=== PATIENT | female | born 1955 | race Caucasian/White ===

== ENCOUNTER 2017-05-23 07:59 | Inpatient (IN) | payer BC ==
[2017-05-16 11:04] LABS: BASOPHILS # (AUTO) 0.1 (0.0-0.1); BASOPHILS % 0.6 % (0.0-1.0); EOSINOPHILS # (AUTO) 0.1 (0.0-0.4); EOSINOPHILS % 1.4 % (0.0-6.0); HEMATOCRIT 42.7 % (34.2-44.1); LYMPHOCYTES # (AUTO) 2.9 (1.0-3.2); MEAN CORPUSCULAR HEMOGLOBIN 28.9 pg (28-32); MEAN CORPUSCULAR HGB CONC 32.8 g/dL (31-35); MONOCYTES # (AUTO) 0.4 (0.2-0.8); MONOCYTES % 5.6 % (4.4-11.3); NEUTROPHILS # (AUTO) 4.4 (2.1-6.9); NEUTROPHILS % 55.1 % (38.7-80.0); PLATELET COUNT 280 x10e3/uL (140-360); RED BLOOD COUNT 4.85 x10e6/uL (3.6-5.1); RED CELL DISTRIBUTION WIDTH 14.5 % (11.7-14.4)
[2017-05-16 11:20] LABS: ANION GAP 10.1 mmol/L (8-16); BLOOD UREA NITROGEN 14 mg/dL (7-26); BUN/CREATININE RATIO 16 (6-25); CALCIUM 9.1 mg/dL (8.4-10.2); CARBON DIOXIDE 28 mmol/L (22-29); CHLORIDE 103 mmol/L (98-107); CREATININE, SERUM 0.87 mg/dL (0.57-1.11); EST GLOMERULAR FILTRATION RATE > 60 ML/MIN (60-); GLUCOSE 89 mg/dL (74-118); POTASSIUM 4.1 mmol/L (3.5-5.1); SODIUM 137 mmol/L (136-145)
--- NOTE | 2017-05-16 11:23 | Diagnostic Imaging Report ---
PROCEDURE: Frontal and lateral views of the chest. COMPARISON: None. INDICATIONS: PRE OP FINDINGS: Lines/tubes: None. Lungs: The lungs are well inflated and clear. There is no evidence of pneumonia or pulmonary edema. Pleura: There is no pleural effusion or pneumothorax. Heart and mediastinum: The heart and the mediastinum are normal. Bones: No acute bony abnormality. Degenerative changes of thoracic spine. IMPRESSION: 1. No acute cardiopulmonary disease. Dictated by: Edgar Hernandez M.D. on 05/16/2017 at 11:31 Electronically approved by: Edgar Hernandez M.D. on 05/16/2017 at 11:31
[~2017-05-23] VITALS: Ht 152.4 cm; Wt 77.7 kg
[~2017-05-23 07:59] MED LIST: GENERLAC10 GM/15 M PO; LINZESS PO; LISINOPRIL10 MG PO; OMEPRAZOLE40 MG PO; PROBIOTIC & AC1 EACH PO; VIT D2 PO
[2017-05-23] MEDS ORDERED: BUPIVACAINE 0.25% 30ML SDV INJ ONE (11:12)
[2017-05-23] MEDS ORDERED: MINERAL OIL STERILE 10ML VIAL ONE (11:13)
[2017-05-23] MEDS ORDERED: LEVOFLOXACIN 500MG/D5W 100ML 100 ML IV ONE ×2 (12:41→15:15)
[2017-05-23] MEDS ORDERED: FENTANYL CITRATE/PF 100MCG/2 ML INJ ONE ×2 (13:05→17:37)
[2017-05-23] MEDS ORDERED: MIDAZOLAM HCL 2 MG/2 ML VIAL ONE (13:05)
[2017-05-23] MEDS ORDERED: DEXTROSE 5%/LACTATED RINGERS 1,000 ML IV SCH (15:05)
[2017-05-23] MEDS: PANTOPRAZOLE 40 MG 10ML VIAL IV SCH (15:15)
[2017-05-23] MEDS ORDERED: ONDANSETRON HCL INJ 2 MG/ML VIAL IV PRN (15:15)
[2017-05-23] MEDS ORDERED: HYDROMORPHONE 1MG/1ML INJ IV PRN (15:15)
[2017-05-23] MEDS: SODIUM CHLORIDE 0.9% 250ML IRRIG IR SCH ×3 (15:15→23:39)
[2017-05-23] MEDS ORDERED: ACETAMINOPHEN 1000 MG/100 ML IV PRN (15:15)
[2017-05-23] MEDS ORDERED: HYDROMORPHONE 2MG/ML INJ IV PRN ×2 (15:30)
[2017-05-23 18:31] VITALS: BP 132/61
[2017-05-23 19:45] VITALS: BP 121/59
[2017-05-23 21:12] VITALS: BP 121/59
[2017-05-23] MEDS: DEXTROSE 5%/0.9% SOD CHL 1,000 ML IV SCH (22:25)
[2017-05-23] MEDS: KETOROLAC TROMETHAMINE 30 MG/ML VIAL IV PRN (22:35)
[2017-05-24] VITALS (8 sets, daily range): BP systolic 111–140; BP diastolic 51–65
[2017-05-24] MEDS: DEXTROSE 5%/0.9% SOD CHL 1,000 ML IV SCH ×3 (01:45→18:30)
[2017-05-24] MEDS: SODIUM CHLORIDE 0.9% 250ML IRRIG IR SCH ×5 (03:50→19:15)
[2017-05-24] MEDS ORDERED: ALBUTEROL/IPRATROPIUM 3 ML NEB NEB PRN (06:30)
[2017-05-24] MEDS ORDERED: HYDRALAZINE HCL 20 MG/ML VIAL IV PRN (06:30)
[2017-05-24 06:55] LABS: BASOPHILS % 0.1 % (0.0-1.0); HEMATOCRIT 38.7 % (34.2-44.1); HEMOGLOBIN 12.5 g/dL (12.0-16.0); LYMPHOCYTES # (AUTO) 1.1 (1.0-3.2); MEAN CORPUSCULAR HEMOGLOBIN 28.5 pg (28-32); MEAN CORPUSCULAR HGB CONC 32.3 g/dL (31-35); MEAN CORPUSCULAR VOLUME 88.2 fL (81-99); MONOCYTES # (AUTO) 1.1 (0.2-0.8); MONOCYTES % 6.9 % (4.4-11.3); NEUTROPHILS # (AUTO) 13.1 (2.1-6.9); NEUTROPHILS % 85.6 % (38.7-80.0); PLATELET COUNT 245 x10e3/uL (140-360); RED BLOOD COUNT 4.39 x10e6/uL (3.6-5.1); RED CELL DISTRIBUTION WIDTH 14.5 % (11.7-14.4)
[2017-05-24 07:23] LABS: ANION GAP 10.2 mmol/L (8-16); BLOOD UREA NITROGEN 17 mg/dL (7-26); BUN/CREATININE RATIO 20 (6-25); CALCIUM 8.2 mg/dL (8.4-10.2); CARBON DIOXIDE 26 mmol/L (22-29); CHLORIDE 107 mmol/L (98-107); CREATININE, SERUM 0.84 mg/dL (0.57-1.11); EST GLOMERULAR FILTRATION RATE > 60 ML/MIN (60-); GLUCOSE 141 mg/dL (74-118); POTASSIUM 4.2 mmol/L (3.5-5.1); SODIUM 139 mmol/L (136-145)
[2017-05-24] MEDS: KETOROLAC TROMETHAMINE 30 MG/ML VIAL IV PRN ×2 (09:00→15:43)
[2017-05-24] MEDS: PANTOPRAZOLE 40 MG 10ML VIAL IV SCH (15:03)
[2017-05-24] MEDS ORDERED: LIDOCAINE HCL 2% LOCAL INJ 5 ML SDV VIAL INJ ONE (19:20)
[2017-05-24] MEDS ORDERED: NEOSTIGMINE 5 MG/5ML SYR ONE (19:20)
[2017-05-24] MEDS ORDERED: PROPOFOL IV EMULSION 10 MG/ML 20 ML VIAL ONE (19:20)
[2017-05-24] MEDS ORDERED: DEXAMETHASONE SOD PHOS INJ 4 MG/ML VIAL ONE (19:20)
[2017-05-24] MEDS ORDERED: GLYCOPYRROLATE INJ 1MG/ 5 ML SYR ONE (19:20)
[2017-05-24] MEDS ORDERED: ROCURONIUM BROMIDE 10 MG/ML 5ML VIAL ONE (19:20)
[2017-05-24] MEDS ORDERED: ONDANSETRON HCL INJ 2 MG/ML VIAL ONE (19:20)
[2017-05-24] MEDS ORDERED: HYDRALAZINE HCL 20 MG/ML VIAL ONE (19:20)
[2017-05-24] MEDS ORDERED: SEVOFLURANE INHAL SOLN 250 ML PEN BTL ONE (19:20)
[2017-05-24] MEDS ORDERED: ACETAMINOPHEN 1000 MG/100 ML IV PRN (20:30)
[2017-05-24] MEDS: BISACODYL 10 MG SUPP PR SCH (21:22)
[2017-05-25] VITALS: BP 116/63
[2017-05-25 04:00] VITALS: BP 120/65
[2017-05-25] MEDS: DEXTROSE 5%/0.9% SOD CHL 1,000 ML IV SCH ×2 (04:11→16:50)
[2017-05-25 07:31] LABS: BASOPHILS % 0.2 % (0.0-1.0); EOSINOPHILS % 0.2 % (0.0-6.0); HEMOGLOBIN 10.9 g/dL (12.0-16.0); LYMPHOCYTES % 24.6 % (18.0-39.1); MEAN CORPUSCULAR HEMOGLOBIN 28.8 pg (28-32); MEAN CORPUSCULAR HGB CONC 32.1 g/dL (31-35); MEAN CORPUSCULAR VOLUME 89.9 fL (81-99); MONOCYTES # (AUTO) 0.7 (0.2-0.8); MONOCYTES % 5.9 % (4.4-11.3); NEUTROPHILS # (AUTO) 8.4 (2.1-6.9); NEUTROPHILS % 68.6 % (38.7-80.0); PLATELET COUNT 216 x10e3/uL (140-360); RED BLOOD COUNT 3.78 x10e6/uL (3.6-5.1)
[2017-05-25 07:52] LABS: BLOOD UREA NITROGEN 15 mg/dL (7-26); BUN/CREATININE RATIO 19 (6-25); CALCIUM 8.4 mg/dL (8.4-10.2); CARBON DIOXIDE 26 mmol/L (22-29); CHLORIDE 111 mmol/L (98-107); CREATININE, SERUM 0.79 mg/dL (0.57-1.11); EST GLOMERULAR FILTRATION RATE > 60 ML/MIN (60-); GLUCOSE 104 mg/dL (74-118); SODIUM 143 mmol/L (136-145)
[2017-05-25 08:07] VITALS: BP 136/70
[2017-05-25] MEDS: BISACODYL 10 MG SUPP PR SCH ×2 (09:00→20:26)
[2017-05-25 11:52] VITALS: BP 112/58
[2017-05-25] MEDS: PANTOPRAZOLE 40 MG 10ML VIAL IV SCH (15:15)
[2017-05-25 15:53] VITALS: BP 124/58
[2017-05-25] MEDS: KETOROLAC TROMETHAMINE 30 MG/ML VIAL IV PRN ×2 (16:14→22:07)
[2017-05-25 20:00] VITALS: BP 122/65
[2017-05-26] VITALS (7 sets, daily range): BP systolic 127–165; BP diastolic 60–74
[2017-05-26] MEDS: DEXTROSE 5%/0.9% SOD CHL 1,000 ML IV SCH ×2 (05:53→12:22)
[2017-05-26] MEDS: KETOROLAC TROMETHAMINE 30 MG/ML VIAL IV PRN (06:25)
[2017-05-26 07:18] LABS: BASOPHILS % 0.2 % (0.0-1.0); EOSINOPHILS # (AUTO) 0.1 (0.0-0.4); EOSINOPHILS % 1.3 % (0.0-6.0); HEMATOCRIT 33.9 % (34.2-44.1); HEMOGLOBIN 10.7 g/dL (12.0-16.0); LYMPHOCYTES # (AUTO) 2.4 (1.0-3.2); LYMPHOCYTES % 28.6 % (18.0-39.1); MEAN CORPUSCULAR HEMOGLOBIN 28.7 pg (28-32); MEAN CORPUSCULAR HGB CONC 31.6 g/dL (31-35); MEAN CORPUSCULAR VOLUME 90.9 fL (81-99); MONOCYTES # (AUTO) 0.6 (0.2-0.8); MONOCYTES % 7.4 % (4.4-11.3); NEUTROPHILS # (AUTO) 5.2 (2.1-6.9); NEUTROPHILS % 62.3 % (38.7-80.0); PLATELET COUNT 191 x10e3/uL (140-360); RED BLOOD COUNT 3.73 x10e6/uL (3.6-5.1); RED CELL DISTRIBUTION WIDTH 14.9 % (11.7-14.4)
[2017-05-26 07:46] LABS: ANION GAP 7.7 mmol/L (8-16); BLOOD UREA NITROGEN 12 mg/dL (7-26); BUN/CREATININE RATIO 17 (6-25); CALCIUM 8.4 mg/dL (8.4-10.2); CARBON DIOXIDE 25 mmol/L (22-29); CHLORIDE 113 mmol/L (98-107); CREATININE, SERUM 0.71 mg/dL (0.57-1.11); EST GLOMERULAR FILTRATION RATE > 60 ML/MIN (60-); GLUCOSE 106 mg/dL (74-118); POTASSIUM 3.7 mmol/L (3.5-5.1); SODIUM 142 mmol/L (136-145)
[2017-05-26] MEDS: BISACODYL 10 MG SUPP PR SCH (08:00)
[2017-05-26] MEDS: PANTOPRAZOLE 40 MG 10ML VIAL IV SCH (16:00)
[2017-05-26] MEDS: HYDROCODONE/APAP 7.5MG-325MG 1 EA TAB PO PRN (16:30)
[2017-05-27] VITALS: BP_SYST 136; BP_SYST 146; BP_DIAS 65; BP_DIAS 79
[2017-05-27] MEDS: HYDROCODONE/APAP 7.5MG-325MG 1 EA TAB PO PRN ×2 (02:44→16:25)
[2017-05-27 07:57] VITALS: BP 143/69
[2017-05-27 11:29] VITALS: BP 147/64
[2017-05-27 13:13] VITALS: BP 147/64
[2017-05-27] MEDS: PANTOPRAZOLE 40 MG 10ML VIAL IV SCH (15:11)
[2017-05-27 16:28] VITALS: BP 133/60
[2017-05-27] MEDS ORDERED: TYLENOL WITH C1 EACH PO (16:53)
[2017-05-27] MEDS ORDERED: PROMETHAZINE HC25 M1 PO (16:54)
== END 2017-05-27 17:11 | disposition home or self-care (01) | DRG 331 ==
LOC: OR 07:59 → MED/SURG 19:00
PROVIDERS: ADMIT Surgery; ATTEND Surgery
PROC: 0DTN4ZZ Resection of Sigmoid Colon, Percutaneous Endoscopic Approach (ICD-10-PCS; principal; 2017-05-23 12:16)
DX: K57.92 Diverticulitis of intestine, part unspecified, without perforation or abscess without bleeding (principal); J44.9 Chronic obstructive pulmonary disease, unspecified; I10 Essential (primary) hypertension; Z88.0 Allergy status to penicillin; J45.909 Unspecified asthma, uncomplicated
CPT/HCPCS: 36415; 71020; 80048; 85025; 88307; 93005; C1766; J0360; J1100; J1885; J1956; J2001; J2250; J2405; J7042

== ENCOUNTER → 2018-08-21 | Outpatient (CLI) | payer BC ==
[~2018-08-21] MED LIST changes: +PROMETHAZINE HC25 M1 PO; +TYLENOL WITH C1 EACH PO
== END ==
LOC: MAMMO 08:30
PROVIDERS: ATTEND Family Medicine
DX: Z12.31 Encounter for screening mammogram for malignant neoplasm of breast (principal)
CPT/HCPCS: 77067

== ENCOUNTER → 2021-08-31 | Outpatient (CLI) | payer MEDICARE | LOC: MAMMO 08:00 | PROVIDERS: ATTEND Family Medicine | DX: Z12.31 Encounter for screening mammogram for malignant neoplasm of breast (principal) | CPT/HCPCS: 77067 ==

== ENCOUNTER → 2022-09-03 | Outpatient (CLI) | payer MEDICARE | LOC: MAMMO 12:26 | PROVIDERS: ATTEND Family Medicine | DX: Z12.31 Encounter for screening mammogram for malignant neoplasm of breast (principal) | CPT/HCPCS: 77067 ==

== ENCOUNTER → 2024-08-22 | Outpatient (REF) | payer MEDICARE ==
[~2024-08-22] MED LIST changes: +LORAZEPAM INJ 2 MG/ML VIAL ONE; +PANTOPRAZOLE SO40 MG PO
== END ==
LOC: MRI 11:44
PROVIDERS: ATTEND Family Medicine
DX: M54.17 Radiculopathy, lumbosacral region (principal)
CPT/HCPCS: 72148; J2060

== ENCOUNTER → 2024-12-18 | Outpatient (REF) | payer MEDICARE ==
[~2024-12-18] MED LIST changes: -LORAZEPAM INJ 2 MG/ML VIAL ONE
== END ==
LOC: MAMMO 09:03
PROVIDERS: ATTEND Family Medicine
DX: Z12.31 Encounter for screening mammogram for malignant neoplasm of breast (principal); M85.88 Other specified disorders of bone density and structure, other site
CPT/HCPCS: 77067; 77080